=== PATIENT | male | born 1955 ===

== ENCOUNTER → 2017-01-04 | Outpatient (CLI) | payer BC | END | disposition home or self-care (01) | LOC: CFH 09:40 | PROVIDERS: ATTEND Internal Medicine Cardiovascular Disease | DX: I25.10 Atherosclerotic heart disease of native coronary artery without angina pectoris (principal); I51.7 Cardiomegaly; I34.0 Nonrheumatic mitral (valve) insufficiency; I10 Essential (primary) hypertension; E78.5 Hyperlipidemia, unspecified; I25.2 Old myocardial infarction; Z95.5 Presence of coronary angioplasty implant and graft; Z86.74 Personal history of sudden cardiac arrest | CPT/HCPCS: 93306 ==